=== PATIENT | female | born 2000 | race Caucasian/White ===

== ENCOUNTER 2019-10-15 06:40 | Emergency (ER) | payer BC ==
--- NOTE | 2019-10-15 07:12 | EDM.PDOC ---
ED HPI GENERAL MEDICAL PROBLEM - General Chief Complaint: Headache Stated Complaint: HEADACHE Time Seen by Provider: 10/15/19 07:09 - History of Present Illness INITIAL COMMENTS - FREE TEXT/NARRATIVE: 18-year-old female presents the emergency room with headaches. Patient has nearly daily headaches. At minimum has 2-3 headaches a week. This is been going on for the last 2-1/2 years. She seems to think there is a correlation between a meningococcal vaccine that she received just prior to developing these headaches. Her headaches do seem to escalate over the last week or so she has not felt well she is had some nausea and fevers and seems to be achy all over. For her headaches she has had several scans unrevealing, and her headaches are always the same. She describes her headaches as usually being worse on the left side she has nausea associated with them and it does not sound like she has an aura. She has been told this could take about 5 months to get in to see neurology but she does not want to wait that long. Headache Pain Score (Numeric/FACES): 7 - Related Data Allergies Allergy/AdvReac Type Severity Reaction Status Date / Time No Known Allergies Allergy Verified 10/15/19 07:14 Home Meds: Home Meds Cyclobenzaprine [Flexeril] 10 mg PO BEDTIME #10 tab 10/15/19 [Rx] ED ROS GENERAL - Review of Systems Review Of Systems: See Below Constitutional: Reports: Other (No measurable fevers but feels warm at times) HEENT: Reports: No Symptoms Respiratory: Reports: No Symptoms Cardiovascular: Reports: No Symptoms Endocrine: Reports: No Symptoms GI/Abdominal: Reports: Nausea. Denies: Abdominal Pain Musculoskeletal: Reports: No Symptoms Skin: Reports: No Symptoms Neurological: Reports: No Symptoms Psychiatric: Reports: No Symptoms Hematologic/Lymphatic: Reports: No Symptoms Immunologic: Reports: No Symptoms - Physical Exam Exam: See Below Exam Limited By: No Limitations General Appearance: Alert, No Apparent Distress Ears: Normal External Exam, Normal Canal, Hearing Grossly Normal, Normal TMs Nose: Normal Inspection, Normal Mucosa, No Blood Throat/Mouth: Normal Inspection, Normal Lips, Normal Teeth, Normal Gums, Normal Oropharynx, Normal Voice, No Airway Compromise Head Exam: Atraumatic, Normocephalic Neck: Normal Inspection, Other (She has significant muscle spasm on the left paraspinous muscles in the cervical area radiating into her scalp and down into the upper thoracic area). No: Lymphadenopathy (L), Lymphadenopathy (R) Respiratory/Chest: No Respiratory Distress, Lungs Clear, Normal Breath Sounds Cardiovascular: Regular Rate, Rhythm, No Edema, No Murmur Neuro Exam (Abbreviated): Other (Cranial nerves II through XII grossly intact all muscle groups in upper lower extremities are equal and appropriate bilaterally. Deep tendon reflexes at the brachioradialis and patella tendons are equal and appropriate bilaterally. Cerebellar testing is entirely within normal limits.) Back Exam: Normal Inspection, Full Range of Motion. No: CVA Tenderness (L), CVA Tenderness (R) Psychiatric: Normal Affect, Normal Mood, Other (She is concerned about her condition) Course - Vital Signs Last Recorded V/S: Last Vital Signs Temp 36.2 C 10/15/19 07:09 Pulse 71 10/15/19 07:09 Resp 16 10/15/19 07:09 BP 146/94 H 10/15/19 07:09 Pulse Ox 100 10/15/19 07:09 - Orders/Labs/Meds Meds: Medications Discontinued Medications Generic Name Dose Route Start Last Admin Trade Name Freq PRN Reason Stop Dose Admin Cyclobenzaprine HCl 10 mg 10/15/19 08:19 10/15/19 09:09 Flexeril PO 10/15/19 08:20 10 mg ONETIME ONE Administration Diphenhydramine HCl 25 mg 10/15/19 07:33 10/15/19 07:54 Benadryl IVPUSH 10/15/19 07:34 25 mg ONETIME ONE Administration Lactated Ringer's 1,000 mls @ 999 mls/hr 10/15/19 07:33 10/15/19 07:52 Ringers, Lactated IV 10/15/19 08:33 999 mls/hr .BOLUS ONE Administration Ketorolac Tromethamine 15 mg 10/15/19 08:19 10/15/19 09:09 Toradol IVPUSH 10/15/19 08:20 15 mg ONETIME ONE Administration Ondansetron HCl 4 mg 10/15/19 07:33 10/15/19 07:52 Zofran IVPUSH 10/15/19 07:34 4 mg ONETIME ONE Administration - Re-Assessments/Exams Free Text/Narrative Re-Assessment/Exam: 10/15/19 13:00 The patient is doing much better she did not have much relief from the IV fluids Benadryl and Zofran after she received Toradol 15 mg IV and Flexeril 10 mg p.o. she did much better her neck is relaxed quite a bit and her headache is significantly better. At this point we can discharge her home with nighttime Flexeril to help with the spasms she has in the left paraspinous muscles. Departure - Departure Time of Disposition: 13:01 Disposition: Home, Self-Care 01 Clinical Impression: Muscle tension headache - Discharge Information Prescriptions: Cyclobenzaprine [Flexeril] 10 mg PO BEDTIME #10 tab Referrals: Amairani Diaz MD [Primary Care Provider] - Forms: ED Department Discharge, ED Return to Work/School Form Additional Instructions: Turn to the emergency room with any questions problems or worsening symptoms. Take the Flexeril, or cyclobenzaprine this is a muscle relaxant 1 nightly for 7 days and then as needed. Follow-up with your regular doctor in 1 week. Sepsis Event Note - Focused Exam Vital Signs: Vital Signs Temp Pulse Resp BP Pulse Ox 10/15/19 07:09 36.2 C 71 16 146/94 H 100 Date Exam was Performed: 10/15/19 Time Exam was Performed: 13:00
[2019-10-15] MEDS ORDERED: Lactated Ringers 1,000 ML IV ONE (07:33)
[2019-10-15] MEDS ORDERED: diphenhydrAMINE 50 MG/ML SDV IVPUSH ONE (07:33)
[2019-10-15] MEDS ORDERED: Ondansetron 4 MG/2 ML SDV IVPUSH ONE (07:33)
[2019-10-15] MEDS ORDERED: Cyclobenzaprine 10 MG Tab PO ONE (08:19)
[2019-10-15] MEDS ORDERED: Ketorolac 15 MG/ML SDV IVPUSH ONE (08:19)
== END 2019-10-15 13:15 | disposition home or self-care (01) ==
LOC: JD.ED 06:40
DX: G44.209 Tension-type headache, unspecified, not intractable (principal)
CPT/HCPCS: 96361; 96374; 96375; 99283; A9270; J1200; J1885; J2405; J7120; 99284

== ENCOUNTER 2022-03-09 19:26 | Emergency (ER) | payer BC ==
[2022-03-09] MEDS ORDERED: Sodium Chloride 0.9% 10 ML Syringe FLUSH PRN ×2 (19:48→20:15)
[2022-03-09] MEDS ORDERED: HYDROmorphone 1 MG/ML Syringe IVPUSH STA (19:48)
[2022-03-09] MEDS ORDERED: Ondansetron 4 MG/2 ML SDV IVPUSH ONE (19:48)
[2022-03-09] MEDS ORDERED: Sodium Chloride 0.9% 1,000 ML IV SCH (20:00)
[2022-03-09] MEDS ORDERED: Iopamidol 612 MG/ML 100 ML Bottle IVPUSH ONE (20:15)
[2022-03-09 20:55] LABS: ESTIMATED GFR 92 mL/min (>60)
[2022-03-09] MEDS ORDERED: Dicyclomine 10 MG Cap PO ONE (21:21)
[2022-03-09] MEDS ORDERED: HYDROmorphone 0.5 MG/0.5 ML Syringe IVPUSH ONE (21:35)
== END 2022-03-09 21:50 | disposition home or self-care (01) ==
LOC: JD.ED 19:26
DX: R10.33 Periumbilical pain (principal); R10.31 Right lower quadrant pain; F17.210 Nicotine dependence, cigarettes, uncomplicated; Z86.16 Personal history of COVID-19
CPT/HCPCS: 36415; 74177; 80053; 81001; 85025; 86140; 87086; 96361; 96374; 96375; 96376; 99284; A9270; J1170; J2405; J3490; J7030; Q9967

== ENCOUNTER 2022-08-13 10:16 | Emergency (ER) | payer BC, OTHER ==
[2022-08-13] MEDS ORDERED: Sodium Chloride 0.9% 1,000 ML IV STA (11:50)
[2022-08-13] MEDS ORDERED: Sodium Chloride 0.9% 10 ML Syringe FLUSH PRN ×2 (11:50→11:56)
[2022-08-13] MEDS ORDERED: Iopamidol 755 Mg/ML 100 ML Bottle IVPUSH ONE (11:56)
[2022-08-13] MEDS ORDERED: Sodium Chloride 0.9% 100 ML IV SCH (12:00)
[2022-08-13] MEDS ORDERED: Ketorolac 30 MG/ML SDV IVPUSH ONE (12:17)
[2022-08-13 12:34] LABS: CORONAVIRUS COVID-19 NAA POSITIVE (NEGATIVE)
== END 2022-08-13 13:34 | disposition home or self-care (01) ==
LOC: JD.ED 10:16
DX: U07.1 COVID-19 (principal); J01.90 Acute sinusitis, unspecified; J45.909 Unspecified asthma, uncomplicated; Z79.899 Other long term (current) drug therapy
CPT/HCPCS: 0241U; 36415; 71046; 71275; 80053; 84703; 85025; 85379; 96361; 96374; 99284; J1885; J3490; J7030; Q9967

== ENCOUNTER 2022-09-14 17:25 | Emergency (ER) | payer OTHER ==
[2022-09-14] MEDS ORDERED: HYDROmorphone 1 MG/ML Syringe IM ONE (21:13)
== END 2022-09-14 23:00 | disposition home or self-care (01) ==
LOC: JD.ED 17:25
DX: N94.6 Dysmenorrhea, unspecified (principal); J45.909 Unspecified asthma, uncomplicated; F17.290 Nicotine dependence, other tobacco product, uncomplicated
CPT/HCPCS: 36415; 85014; 85018; 96372; 99284; J1170